=== PATIENT | female | born 1990 | race American Indian/Alaskan Native ===

== ENCOUNTER 2018-09-18 18:26 | Emergency (ER) | payer SELFPAY ==
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
[2018-09-18 19:51] LABS: HCG Qualitative,Urine Negative (Negative)
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
[2018-09-18 21:49] VITALS: BP 135/81
== END 2018-09-18 21:44 | disposition home or self-care (01) ==
LOC: ED 18:26
DX: S93.402A Sprain of unspecified ligament of left ankle, initial encounter (principal); S93.401A Sprain of unspecified ligament of right ankle, initial encounter; S40.812A Abrasion of left upper arm, initial encounter; S06.0X1A Concussion with loss of consciousness of 30 minutes or less, initial encounter; M25.562 Pain in left knee; M25.561 Pain in right knee; M79.652 Pain in left thigh; M79.651 Pain in right thigh; Z79.899 Other long term (current) drug therapy; V49.49XA Driver injured in collision with other motor vehicles in traffic accident, initial encounter; Y93.89 Activity, other specified; Y92.410 Unspecified street and highway as the place of occurrence of the external cause; Y99.8 Other external cause status
CPT/HCPCS: 70450; 81025

== ENCOUNTER 2018-09-25 07:43 | Emergency (ER) | payer OTHER ==
[2018-09-25 07:53] VITALS: BP 138/96
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
== END 2018-09-25 08:45 | disposition home or self-care (01) ==
LOC: ED 07:43
DX: S93.402A Sprain of unspecified ligament of left ankle, initial encounter (principal); F17.200 Nicotine dependence, unspecified, uncomplicated; F12.90 Cannabis use, unspecified, uncomplicated; Z79.899 Other long term (current) drug therapy; V49.9XXA Car occupant (driver) (passenger) injured in unspecified traffic accident, initial encounter; Y93.89 Activity, other specified; Y92.488 Other paved roadways as the place of occurrence of the external cause; Y99.8 Other external cause status
CPT/HCPCS: 99283